=== PATIENT | male | born 1960 | race Caucasian/White ===

== ENCOUNTER → 2021-12-08 10:33 | Outpatient (BNVA) | payer BC, SELFPAY | PROVIDERS: PCP Family Medicine; Visit Provider Family Medicine | DX: Z00.00 Encounter for general adult medical examination without abnormal findings (principal); R25.2 Cramp and spasm; Z13.220 Encounter for screening for lipoid disorders; Z51.81 Encounter for therapeutic drug level monitoring; I10 Essential (primary) hypertension | CPT/HCPCS: 80053; 80061; 83735; 85025 ==

== ENCOUNTER → 2024-01-19 08:07 | Outpatient (BNVA) | payer BC, SELFPAY | PROVIDERS: PCP Family Medicine; Visit Provider Family Medicine | DX: Z00.00 Encounter for general adult medical examination without abnormal findings (principal); Z13.220 Encounter for screening for lipoid disorders; Z51.81 Encounter for therapeutic drug level monitoring | CPT/HCPCS: 80053; 80061; 85025 ==

== ENCOUNTER 2024-02-18 09:03 | Emergency (ER) | payer BC, SELFPAY ==
[2024-02-18 09:37] VITALS: BP 138/87; PULSE 85; RESP 16; TEMP 36.6; O2SAT 98; BMI 25.1
--- NOTE | 2024-02-18 09:39 | XRR_ITS ---
PROCEDURE INFORMATION: Exam: XR Chest Exam date and time: 02/18/2024 9:52 AM Age: 63 years old Clinical indication: Pain; Chest pressure; Additional info: Cp TECHNIQUE: Imaging protocol: Radiologic exam of the chest. Views: 1 view. COMPARISON: No relevant prior studies available. FINDINGS: Lungs: Hyperinflation and emphysematous changes. No focal infiltrate. Pleural spaces: Unremarkable. No pleural effusion. No pneumothorax. Heart/Mediastinum: No cardiomegaly. Bones/joints: Unremarkable. XR/XR chest 1V portable [id number] IMPRESSION: No acute findings. Emphysematous changes noted
--- NOTE | 2024-02-18 09:41 | CTR_ITS ---
PROCEDURE INFORMATION: Exam: CT Abdomen And Pelvis Without Contrast Exam date and time: 02/18/2024 9:57 AM Age: 63 years old Clinical indication: Abdominal pain; Flank; Left; Additional info: Flank pain TECHNIQUE: Imaging protocol: Computed tomography of the abdomen and pelvis without contrast. Radiation optimization: All CT scans at this facility use at least one of these dose optimization techniques: automated exposure control; mA and/or kV adjustment per patient size (includes targeted exams where dose is matched to clinical indication); or iterative reconstruction. COMPARISON: CR (CHEST, ) 02/18/2024 9:52 AM RADIATION DOSE METRICS: Total DLP (mGy-cm): 550.13 FINDINGS: Lungs: 7 mm nodule in the visualized right lower lobe. 8 mm nodule in visualized right middle lobe. Liver: Small hypodense lesions in right and left lobes largest measuring 11 mm in right lobe. Gallbladder and biliary ducts: Calcified 2 gallstones measuring 6 mm and 3 mm in fundus of the gallbladder. 6 mm calculus in more inferiorly within the fundus also noted. No wall thickening or edema. No biliary ductal dilatation. Pancreas: Unremarkable Spleen: Normal. No splenomegaly. Adrenal glands: Right adrenal gland is unremarkable. 1 cm adenoma in left adrenal gland. Kidneys and ureters: 1 cm cortical cyst in right kidney lower pole laterally. No renal calculus. No hydronephrosis. Ureters are normal in caliber. Stomach and bowel: Scattered diverticuli of the colon noted. No obstruction. No acute inflammation. Appendix: No evidence of appendicitis. Intraperitoneal space: No free air. No significant fluid collection. Vasculature: Scattered calcifications of the aorta. No abdominal aortic aneurysm. Lymph nodes: No enlarged lymph nodes. Urinary bladder: Unremarkable as visualized. Reproductive: Prostatomegaly, measures about 4 x 4.5 x 4.8 cm. Bones/joints: No acute fracture. Soft tissues: Midline ventral abdominal hernia containing fat. Small umbilical hernia containing fat. No bowel herniation. Moderate spondylotic change at L5/S1 level with marginal osteophytes causing minimal mass effect. CT/CT kidney stone [id number] IMPRESSION: 1. No acute findings. 2. Cholelithiasis. Prostatomegaly. 3. Small hypodense scattered liver lesions. Recommend follow-up nonemergent MRI for further evaluation. 4. Nodules in the visualized right middle lobe and right lower lobe lung measuring up to 8 mm. For patients at low risk (minimal or absent history of smoking and of other known risk factors), recommend CT Chest at 3-6 months, then consider CT Chest at 18-24 months. For patients at high risk (history of smoking or of other known risk factors), recommend CT Chest at 3-6 months, then CT Chest at 18-24 months. (Reference: Lester) COMMENTS: 1. Consistent with the [place]'s Incidental Findings Committee white paper (J Am Candace Radiol 2017): For any incidental adrenal lesion greater than or equal to 1 cm but less than or equal to 4 cm classified in this report as benign, likely benign, or containing fat (including classification as an adenoma or myelolipoma), no follow-up imaging is recommended per consensus recommendations based on imaging criteria. Further lab evaluation could be pursued if warranted based on clinical findings. 2. Consistent with the [employer]'s Incidental Findings Committee white paper (J Am Candace Radiol 2018): Any incidental renal lesion less than 1 cm or classified as too small to characterize, or any incidental cystic renal lesion characterized as simple-appearing, is likely benign. No follow-up imaging is recommended for these lesions per consensus recommendations based on imaging criteria. REFERENCES: Lester Lucero, et al. Guidelines for Management of Incidental Pulmonary Nodules Detected on CT Images: From the Fleischner Society 2017. Radiology. 2017;284(1):228-243.
--- NOTE | 2024-02-18 09:42 | ECG_ITS ---
[facility] Test Date: 2024-02-18 Pat Name: Jacob Carlos Department: Room: Gender: Male Hand Collator: : 1960 Requested By: Pipo Schaffer Order Number: [id number] Edmond MD: Shannen Chirinos M.D. Measurements Intervals [place] Rate: 66 P: 68 IA: 136 QRS: 91 QRSD: 108 T: 72 QT: 398 QTc: 417 Interpretive Statements SINUS RHYTHM BORDERLINE RIGHT AXIS DEVIATION [QRS AXIS > 90] No previous ECG available for comparison Electronically Signed On 02-18-2024 22:16:37 SERVICE SPRINKLER HELPER by Shannen Chirinos M.D. [email or web address]
--- NOTE | 2024-02-18 09:42 | ECG_ITS ---
[facility] Test Date: 2024-02-18 Pat Name: Jacob Carlos Department: Room: Gender: Male Cash Applications Clerk: : 1960 Requested By: Pipo Schaffer Order Number: [id number] Edmond MD: Shannen Chirinos M.D. Measurements Intervals [place] Rate: 66 P: 68 KS: 136 QRS: 91 QRSD: 108 T: 72 QT: 398 QTc: 417 Interpretive Statements SINUS RHYTHM BORDERLINE RIGHT AXIS DEVIATION [QRS AXIS > 90] No previous ECG available for comparison Electronically Signed On 02-18-2024 22:16:11 CREAM TESTER by Shannen Chirinos M.D. [id number]
--- NOTE | 2024-02-18 10:00 | ED_ITS ---
HPI - General Adult 2 General: Chief complaint: General Medical Stated complaint: pain in lft side and back Time Seen by Provider: 02/18/24 09:36 Source: patient Mode of arrival: ambulatory Limitations: no limitations History of Present Illness: 63-year-old male states he started havin g some left-sided flank pain yesterday he states it progressed to back pain now having some slight chest pain as well. States the pain is been sharp in nature denies any worse or improving factors he denies any vomiting or diarrhea. States pain currently is a 4 out of 10. Associated symptoms: Reports chest pain; Deny dyspnea, headache(s), nausea, rash or vomiting Related Data Previous Rx's Medication Instructions Recorded lovastatin 10 mg tablet 10 mg PO DAILY #90 tabs 12/28/23 albuterol sulfate 90 mcg/actuation 2 puff inhalation Q6H PRN 01/19/24 aerosol inhaler shortness of breath or wheezing #8.5 grams amlodipine 10 mg-benazepril 20 mg 1 cap PO DAILY #90 caps 01/19/24 capsule hydrocodone 5 mg-acetaminophen 325 1 tab PO Q6H PRN pain #14 tabs 02/18/24 mg tablet ondansetron 4 mg disintegrating 4 mg PO Q6H PRN nausea and 02/18/24 tablet vomiting #14 tabs Allergies Allergy/AdvReac Type Severity Reaction Status Date / Time No Known Allergies Allergy Verified 02/18/24 09:50 Review of Systems 2 Const: Denies: fever(s), chills, body aches or change in appetite ENMT: Denies: throat pain or dental pain Card: Reports: chest pain Resp: Denies: dyspnea GI: Reports: abdominal pain; Denies: nausea, vomiting or diarrhea : Reports: flank pain Musc: Reports: back pain; Denies: neck pain Skin/Breast: Denies: rash Neuro: Denies: headache(s) Psych: Denies: depression Cole/Lymph: Denies: easy bruising All/Imm: Denies: urticaria PFSH ED 2 PFSH: Medical History (Updated 02/18/24 @ 11:35 by Pipo Schaffer MD) Raynauds syndrome Hypertension Surgical History (Updated 01/21/24 @ 22:14 by Nik Philip MD) History of back surgery Social History (Updated 01/19/24 @ 07:51 by Nik Philip MD) Smoking and tobacco/nicotine status: current every day tobacco/nicotine user cigarettes Packs smoked per day: 1 Alcohol intake: current Alcohol intake frequency: few times a week Physical Exam 2 Const: COMMON NORMALS: no acute distress, patient oriented x3 and healthy appearing HENMT: COMMON NORMALS: normocephalic and atraumatic HEAD & SCALP: n ormocephalic and atraumatic Eye: COMMON NORMALS: Equal, round and reactive pupils present and EOMs intact bilaterally PUPIL: Yes Equal, round and reactive pupils present Neck/C-Spine: COMMON NORMALS: full ROM and supple Chest: COMMONS NORMALS: normal inspection of the chest and normal palpation of entire chest wall Resp: COMMON NORMALS: normal respiratory effort, No retractions, No use of accessory muscles and clear to auscultation bilaterally AUSCULTATION: clear to auscultation bilaterally Cardio: COMMON NORMALS: regular rate, regular rhythm and No murmurs present (Cardio) RATE: regular rate RHYTHM: regular rhythm GI: COMMON NORMALS: Normal to inspection, nondistended, normoactive bowel sounds present, Soft to palpation, non-tender and no masses PALPATION: Yes Soft to palpation Extremity: COMMON NORMALS: normal to inspection and full ROM Neuro: COMMON NORMALS: patient oriented x3, moves all extremities and no focal motor deficits Psych: COMMON NORMALS: mental status grossly normal, Normal thought process present and cooperative THOUGHT PROCESS: Normal thought process present Skin: COMMON NORMALS: no rashes or lesions noted and no wounds GENERAL SKIN EXAM: no rashes or lesions noted Course 2 Vital Signs: Vital signs: Vital Signs Temperature 97.9 F 02/18/24 09:37 Pulse Rate 83 02/18/24 11:47 Respiratory Rate 16 02/18/24 09:37 Blood Pressure 126/78 02/18/24 11:47 Pulse Oximetry 98 02/18/24 11:47 Oxygen Delivery Me thod Room Air 02/18/24 11:40 MDM - General Adult Medical Decision Making Patient presents here with back and abdominal pain he is also had some mild chest pains chest pain is very atypical radiating from his abdomen CT abdomen here is negative did inform of the incidental findings needing outpatient MRI heart enzymes normal no signs of PE he is stable for discharge follow-up with PCP return if worsening. Medical Records I reviewed the patient's medical records. Lab Data I reviewed the patient's lab results. 02/18/24 10:21 02/18/24 10:21 Radiology Impressions Chest X-Ray 02/18/24 09:39 IMPRESSION: No acute findings. Emphysematous changes noted Abdomen/Pelvis CT 02/18/24 09:41 IMPRESSION: 1. No acute findings. 2. Cholelithiasis. Prostatomegaly. 3. Small hypodense scattered liver lesions. Recommend follow-up nonemergent MRI for further evaluation. 4. Nodules in the visualized right middle lobe and right lower lobe lung measuring up to 8 mm. For patients at low risk (minimal or absent history of smoking and of other known risk factors), recommend CT Chest at 3-6 months, then consider CT Chest at 18-24 months. For patients at high risk (history of smoking or of other known risk factors), recommend CT Chest at 3-6 months, then CT Chest at 18-24 months. (Reference: Lester) COMMENTS: 1. Consistent with the [employer] [place] [employer]'s Incidental Findings Committee white paper (J Am Candace Radiol 2017): For any incidental adrenal lesion greater than or equal to 1 cm but less than or equal to 4 cm classified in this report as benign, likely benign, or containing fat (including classification as an adenoma or myelolipoma), no follow-up imaging is recommended per consensus recommendations based on imaging criteria. Further lab evaluation could be pursued if warranted based on clinical findings. 2. Consistent with the [employer] [place] [employer]'s Incidental Findings Committee white paper (J Am Candace Radiol 2018): Any incidental renal lesion less than 1 cm or classified as too small to characterize, or any incidental cystic renal lesion characterized as simple-appearing, is likely benign. No follow-up imaging is recommended for these lesions per consensus recommendations based on imaging criteria. REFERENCES: Lester Lucero, et al. Guidelines for Management of Incidental Pulmonary Nodules Detected on CT Images: From the Fleischner Society 2017. Radiology. 2017;284(1):228-243. Laboratory Results WBC 13.53 10^3/uL (3.29-11.43) H 02/18/24 10:21 RBC 5.27 10^6/uL (3.85-5.65) 02/18/24 10:21 Hgb 16.20 g/dL (11.27-16.99) 02/18/24 10:21 Hct 47.9 % (37-53) 02/18/24 10:21 MCV 90.9 fl (82-101) 02/18/24 10:21 MCH 30.7 pg (27-33) 02/18/24 10:21 MCHC 33.8 g/dL (30-55) 02/18/24 10:21 RDW 13.6 % (12.1-15.1) 02/18/24 10:21 Plt Count 359 10^3/cmm (157-399) 02/18/24 10:21 MPV 8.7 fL (7.4-10.4) 02/18/24 10:21 Neut % (Auto) 80.9 % 02/18/24 10:21 Lymph % (Auto) 12.8 % 02/18/24 10:21 Emmons % (Auto) 5.3 % 02/18/24 10:21 Eos % (Auto) 0.3 % 02/18/24 10:21 Baso % (Auto) 0.4 % 02/18/24 10:21 Neut # (Auto) 10.95 10^3/uL (1.8-7.7) H 02/18/24 10:21 Lymph # (Auto) 1.7 10^3/uL (0.8-4.8) 02/18/24 10:21 Emmons # (Auto) 0.7 10^3/uL (0.2-0.9) 02/18/24 10:21 Eos # (Auto) 0.0 10^3/uL (0.0-0.8) 02/18/24 10:21 Baso # (Auto) 0.1 10^3/uL (0.0-0.1) 02/18/24 10:21 Nucleated RBC % (auto) 0 % 02/18/24 10:21 Nucleated RBCs # 0.0 /100WBC 02/18/24 10:21 Sodium 137 mmol/L (136-145) 02/18/24 10:21 Potassium 4.0 mmol/L (3.5-5.1) 02/18/24 10:21 Chloride 99 mmol/L (98-107) 02/18/24 10:21 Carbon Dioxide 25 mmol/L (22-29) 02/18/24 10:21 Anion Gap 17.0 (5-19) 02/18/24 10:21 BUN 8 mg/dL (8-23) 02/18/24 10:21 Creatinine 0.6 mg/dL (0.7-1.2) L 02/18/24 10:21 GFR Calculation 137.0 mL/min (90-130) H 02/18/24 10:21 Glucose 118 mg/dL (65-115) H 02/18/24 10:21 Calculated Osmolality 283 mOsm/kg (285-295) L 02/18/24 10:21 Calcium 10.0 mg/dL (8.5-10.5) 02/18/24 10:21 Total Bilirubin 0.8 mg/dL (0.15-1.2) 02/18/24 10:21 AST 21 U/L (0-40) 02/18/24 10:21 ALT 26 U/L (0-41) 02/18/24 10:21 Alkaline Phosphatase 107 U/L (40-130) 02/18/24 10:21 Troponin T Baseline < 6 ng/L (0-15) 02/18/24 10:21 Total Protein 7.8 g/dL (6.6-8.7) 02/18/24 10:21 Albumin 4.8 g/dL (3.5-5.2) 02/18/24 10:21 Globulin 3.0 g/dL (1.3-4.6) 02/18/24 10:21 Lipase 19 U/L (13-60) 02/18/24 10:21 Urine Color Yellow (Yellow) 02/18/24 10:21 Urine Appearance Clear (CLEAR) 02/18/24 10:21 Urine pH 6.0 (5-7) 02/18/24 10:21 Ur Specific [place] 1.018 (1.005-1.030) 02/18/24 10:21 Urine Protein 1+ (Negative) A 02/18/24 10:21 Urine Glucose (UA) Negative (Normal) 02/18/24 10:21 Urine Ketones 2+ (Negative) H 02/18/24 10:21 Urine Blood 1+ (Negative) A 02/18/24 10:21 Urine Nitrate Negative (Negative) 02/18/24 10:21 Urine Bilirubin Negative (Negative) 02/18/24 10:21 Urine Urobilinogen 1.0 mg/dL (Negative) 02/18/24 10:21 Ur Leukocyte Esterase Negative (Negative) 02/18/24 10:21 Urine RBC 6-10 /hpf (0-2) 02/18/24 10:21 Urine WBC 0-5 /hpf (0-5) 02/18/24 10:21 Ur Squamous Epith Cells 0-5 /hpf (0-5) 02/18/24 10:21 Amorphous Sediment Not Reportable 02/18/24 10:21 Urine Bacteria None seen /hpf (NONE) 02/18/24 10:21 Hyaline Casts 1.65 /lpf 02/18/24 10:21 All radiology interpretation(s) finalized by discharge EKG Data EKG 1: I personally reviewed and interpreted this EKG as follows: EKG interpretation date: 02/18/24 EKG interpretation time: 09:42 Interpretation: nsr hr [address] or t wa e abnormalities qrs 108 qtc 411 Computer generated interpretation: Chest X-Ray 02/18/24 09:39 IMPRESSION: No acute findings. Emphysematous changes noted Abdomen/Pelvis CT 02/18/24 09:41 IMPRESSION: 1. No acute findings. 2. Cholelithiasis. Prostatomegaly. 3. Small hypodense scattered liver lesions. Recommend follow-up nonemergent MRI for further evaluation. 4. Nodules in the visualized right middle lobe and right lower lobe lung measuring up to 8 mm. For patients at low risk (minimal or absent history of smoking and of other known risk factors), recommend CT Chest at 3-6 months, then consider CT Chest at 18-24 months. For patients at high risk (history of smoking or of other known risk factors), recommend CT Chest at 3-6 months, then CT Chest at 18-24 months. (Reference: Lester) COMMENTS: 1. Consistent with the [place] [employer]'s Incidental Findings Committee white paper (J Am Candace Radiol 2017): For any incidental adrenal lesion greater than or equal to 1 cm but less than or equal to 4 cm classified in this report as benign, likely benign, or containing fat (including classification as an adenoma or myelolipoma), no follow-up imaging is recommended per consensus recommendations based on imaging criteria. Further lab evaluation could be pursued if warranted based on clinical findings. 2. Consistent with the [employer] [place] [employer]'s Incidental Findings Committee white paper (J Am Candace Radiol 2018): Any incidental renal lesion less than 1 cm or classified as too small to characterize, or any incidental cystic renal lesion characterized as simple-appearing, is likely benign. No follow-up imaging is recommended for these lesions per consensus recommendations based on imaging criteria. REFERENCES: Lester Lucero, et al. Guidelines for Management of Incidental Pulmonary Nodules Detected on CT Images: From the Fleischner Society 2017. Radiology. 2017;284(1):228-243. Discharge Plan Discharge Patient Disposition: Home Clinical Impression: Abdominal pain, Chest pain Condition: Stable Prescriptions: New hydrocodone-acetaminophen 5-325 mg tablet 1 tab PO Q6H PRN (Reason: pain) Qty: 14 0RF ondansetron 4 mg tablet,disintegrating 4 mg PO Q6H PRN (Reason: nausea and vomiting) Qty: 14 0RF No Action albuterol sulfate 90 mcg/actuation HFA aerosol inhaler 2 puff inhalation Q6H PRN (Reason: shortness of breath or wheezing) Qty: 8.5 6RF amlodipine-benazepril 10-20 mg capsule 1 cap PO DAILY Qty: 90 3RF lovastatin 10 mg tablet 10 mg PO DAILY Qty: 90 0RF Discharge Orders: Discharge ED (Routine); Ordered 02/18/24 Ordered By: Pipo Schaffer Referrals: Nik Philip MD [Primary Care Provider] - Discharge Diet: Advance as tolerated Discharge Activity: Resume usual activity Patient Instructions: Chest Pain (ED), Abdominal Pain (ED) Coding Level of Care Code ED Mobile Application Developer for Adan Marroquin
[2024-02-18] MEDS: ondansetron 2 mg/ML SDV 2 mL 4 MG IVP (10:19)
[2024-02-18] MEDS: morphine 4 mg/mL SDV 1 mL IVP (10:19)
[2024-02-18 10:30] LABS: Basophils # 0.1 10^3/uL (0.0-0.1); Basophils % 0.4 %; Eosinophils % 0.3 %; Hematocrit 47.9 % (37-53); Lymphocytes # 1.7 10^3/uL (0.8-4.8); Lymphocytes % 12.8 %; Mean Corpuscular HGB Conc 33.8 g/dL (30-55); Mean Corpuscular Hemoglobin 30.7 pg (27-33); Mean Corpuscular Volume 90.9 fl (82-101); Mean Platelet Volume 8.7 fL (7.4-10.4); Monocytes # 0.7 10^3/uL (0.2-0.9); Monocytes % 5.3 %; Neutrophils # 10.95 10^3/uL (1.8-7.7); Neutrophils % 80.9 %; Nucleated Red Blood Cells % 0 %; Platelet Count 359 10^3/cmm (157-399); Red Blood Count 5.27 10^6/uL (3.85-5.65); Red Cell Distribution Width 13.6 % (12.1-15.1); White Blood Count 13.53 10^3/uL (3.29-11.43)
[2024-02-18 10:31] LABS: Bilirubin Urine Negative (Negative); Blood Urine 1+ (Negative); Glucose Urine UA Negative (Normal); Ketones Urine 2+ (Negative); Leukocyte Esterase Urine Negative (Negative); Nitrate Urine Negative (Negative); Protein Urine 1+ (Negative); Specific Gravity, Urine 1.018 (1.005-1.030); Urine Appearance Clear (CLEAR); Urine Color Yellow (Yellow)
[2024-02-18 10:36] LABS: Add Urine Microscopic? YES; Bacteria Urine None Seen /hpf; Hyaline Casts Urine 1.65 /lpf; Squamous Epithelial Cell Urine 0-5 /hpf (0-5); WBC Urine 0-5 /hpf (0-5)
[2024-02-18 10:44] VITALS: BP 137/87; PULSE 74; O2SAT 95
[2024-02-18 10:51] LABS: Alanine Aminotransferase 26 U/L (0-41); Albumin Level 4.8 g/dL (3.5-5.2); Alkaline Phosphatase 107 U/L (40-130); Aspartate Amino Transferase 21 U/L (0-40); Blood Urea Nitrogen 8 mg/dL (8-23); Carbon Dioxide 25 mmol/L (22-29); Chloride 99 mmol/L (98-107); Creatinine Clr Calc Pharmacy 159.4059; Glucose 118 mg/dL (65-115); Lipase 19 U/L (13-60); Osmolality Calculated 283 mOsm/kg (285-295); Sodium 137 mmol/L (136-145); Total Bilirubin 0.8 mg/dL (0.15-1.2); Total Protein 7.8 g/dL (6.6-8.7)
[2024-02-18 10:52] LABS: Troponin(5th) Baseline < 6 ng/L (0-15)
[2024-02-18 11:40] VITALS: BP 126/78; PULSE 83; O2SAT 98
[2024-02-18 11:47] VITALS: BP 126/78; PULSE 83; O2SAT 98
== END 2024-02-18 11:52 | disposition home or self-care (01) ==
PROVIDERS: Emergency Provider Emergency Medicine; PCP Family Medicine
DX: R10.9 Unspecified abdominal pain (principal); R07.9 Chest pain, unspecified; F17.210 Nicotine dependence, cigarettes, uncomplicated; I10 Essential (primary) hypertension
CPT/HCPCS: 71045; 74176; 80053; 81001; 83690; 84484; 85025; 93005; 96374; 96375; 99285; J2270; J2405